=== PATIENT | male | born 1945 | race Caucasian/White ===

== ENCOUNTER 2016-06-24 12:17 | Emergency (ER) | payer BC, MEDICAID ==
[~2016-06-24] VITALS: Wt 90.5 kg
[~2016-06-24 12:17] MED LIST: NO DAILY MEDS
[2016-06-24 12:58] LABS: ADD SCAN DIFF NO
--- NOTE | 2016-06-24 12:58 | ERA ---
ER Documentation Chief Complaint Date/Time DATE: 06/24/16 TIME: 12:57 Chief Complaint "I WANT TO KILL MYSELF" HPI 70-year-old Farsi speaking male. An reinsurance claims analyst was used. The patient states for approximately 6 months he has been feeling depressed. He states that he cannot sleep at night and he thinks about ways to kill himself. The patient is tearful and asking for help. He denies any headache chest pain or shortness of breath, no fevers or chills, no drugs or alcohol currently. ROS All systems reviewed and are negative except as per history of present illness. Medications Home Meds Discontinued Reported Medications [No Daily Meds] No Conflict Check 07/16/15 Allergies Allergies: Coded Allergies: No Known Allergy (Unverified , 06/24/16) PMhx/Soc History of Surgery: Yes (LEFT FEMUR ) Anesthesia Reaction: No Hx Neurological Disorder: No Hx Respiratory Disorders: Yes (CHRONIC BRONCHITIS) Hx Cardiac Disorders: No Hx Psychiatric Problems: No Hx Miscellaneous Medical Probl: No Hx Alcohol Use: No Hx Substance Use: No Hx Tobacco Use: No (1 YR AGO) FmHx Family History: No diabetes Physical Exam Vitals Vital Signs Date Time Temp Pulse Resp B/P Pulse Ox O2 Delivery O2 Flow Rate FiO2 06/24/16 12:26 98.1 77 18 174/120 99 Physical Exam General: Well developed, well nourished, no acute distress Head: Normocephalic, atraumatic. Eyes: Pupils equally reactive, EOM intact ENT: Moist mucous membranes Neck: Supple, no lymphadenopathy Respiratory: Lungs clear bilaterally, no distress Cardiovascular: RRR, no murmurs, rubs, or gallops Abdominal: Soft, non-tender, non-distended, no peritoneal signs : Deferred MSK: No edema, no unilateral swelling, 5/5 strength Neurologic: Alert and oriented, moving all extremities, normal speech, no focal weakness, no cerebellar signs Skin: No rash Psych: Tearful, depressed mood, suicidal ideations Result Diagram: 06/24/16 1250 06/24/16 1250 Results 24 hrs Laboratory Tests Test 06/24/16 12:50 06/24/16 13:50 White Blood Count 7.810^3/ul Red Blood Count 4.6710^6/ul Hemoglobin 15.0g/dl Hematocrit 43.4% Mean Corpuscular Volume 92.9fl Mean Corpuscular Hemoglobin 32.1pg Mean Corpuscular Hemoglobin Concent 34.6g/dl Red Cell Distribution Width 13.0% Platelet Count 62720^3/UL Mean Platelet Volume 11.0fl Neutrophils % 49.3% Lymphocytes % 33.5% Monocytes % 9.4% Eosinophils % 6.9% Basophils % 0.4% Nucleated Red Blood Cells % 0.0/100WBC Neutrophils # 3.810^3/ul Lymphocytes # 2.610^3/ul Monocytes # 0.710^3/ul Eosinophils # 0.510^3/ul Basophils # 0.010^3/ul Nucleated Red Blood Cells # 0.010^3/ul Sodium Level 145mmol/L Potassium Level 4.5mmol/L Chloride Level 106mmol/L Carbon Dioxide Level 28mmol/L Anion Gap 16 Blood Urea Nitrogen 23mg/dl Creatinine 1.02mg/dl Glucose Level 106mg/dl Calcium Level 9.2mg/dl Total Bilirubin 0.2mg/dl Direct Bilirubin 0.00mg/dl Indirect Bilirubin 0.2mg/dl Aspartate Amino Transf (AST/SGOT) 18IU/L Alanine Aminotransferase (ALT/SGPT) 27IU/L Alkaline Phosphatase 95IU/L Total Protein 7.3g/dl Albumin 4.2g/dl Globulin 3.10g/dl Albumin/Globulin Ratio 1.35 Ethyl Alcohol Level < 10.0mg/dl Urine Opiates Screen Positive Urine Barbiturates Negative Urine Amphetamines Screen Negative Urine Benzodiazepines Screen Negative Urine Cocaine Screen Negative Urine Cannabinoids Positive Procedures/MDM LAB INTERPRETATION: Drug screen positive for THC and opiates MEDICAL DECISION MAKING: The patient's presentation is consistent with underlying psychiatric illness and likely exacerbation of this illness and/or psychosis such as depression or major depressive disorder I have a much lower clinical concern for delirium or acute organic pathology such as toxicologic, metabolic, ischemic, intracranial hemorrhage, infectious process. However, we must rule this out prior to relying a diagnosis of underlying psychiatric illness. The patient's workup will include medical screening examination, laboratory analysis, and diagnostic imaging such as EKG, chest x-ray or CT brain as indicated. If the patient's medical examination and laboratory analysis do not reveal acute organic pathology the patient will be medically cleared for psychiatric evaluation. ER COURSE: The patient's laboratory analysis, diagnostic imaging do not suggest an acute organic pathology. At this time I believe the patient's presentation is very consistent with underlying psychiatric illness. The patient is medically cleared for psychiatric evaluation. I kept the patient and/or family informed of laboratory and diagnostic imaging results throughout the emergency room course. CONSULTATION: Psychiatric consultation: Telemetry medicine psychiatry has been consulted on this case to evaluate the patient for possible acute psychiatric illness that would require inpatient hospitalization. DISPOSITION PLAN: Pending psychiatric evaluation by Dr. Severino Departure Diagnosis: Primary Impression: Suicidal ideation Condition: Stable ARAM VEGA MD Jun 24, 2016 12:58
[2016-06-24 12:59] LABS: BASOPHILS % 0.4 % (0.0-2.0); EOSINOPHILS # 0.5 10^3/ul (0.0-0.5); EOSINOPHILS % 6.9 % (0.0-7.0); HEMATOCRIT 43.4 % (42.0-52.0); LYMPHOCYTES # 2.6 10^3/ul (0.8-2.9); LYMPHOCYTES % 33.5 % (15.0-51.0); MEAN CORPUSCULAR HEMOGLOBIN 32.1 pg (29.0-33.0); MEAN CORPUSCULAR HGB CONC 34.6 g/dl (32.0-37.0); MEAN CORPUSCULAR VOLUME 92.9 fl (82.0-101.0); MONOCYTE # 0.7 10^3/ul (0.3-0.9); MONOCYTES % 9.4 % (0.0-11.0); NEUTROPHIL # 3.8 10^3/ul (1.6-7.5); NEUTROPHILS % 49.3 % (39.0-77.0); PLATELET COUNT 197 10^3/UL (140-415); RED BLOOD COUNT 4.67 10^6/ul (4.70-6.10); WHITE BLOOD COUNT 7.8 10^3/ul (4.8-10.8)
[2016-06-24 13:07] LABS: ALBUMIN 4.2 g/dl (3.3-4.9)
[2016-06-24 13:08] LABS: CHLORIDE 106 mmol/L (97-110); POTASSIUM 4.5 mmol/L (3.5-5.1); SODIUM 145 mmol/L (135-144)
[2016-06-24 13:10] LABS: ANION GAP 16 (8-16); ASPARTATE AMINO TRANSFERASE 18 IU/L (15-46); BILIRUBIN,INDIRECT 0.2 mg/dl (0-1.1); BILIRUBIN,TOTAL 0.2 mg/dl (0.2-1.3); CARBON DIOXIDE 28 mmol/L (21-31); CREATININE 1.02 mg/dl (0.61-1.24)
[2016-06-24 13:11] LABS: ALANINE AMINOTRANSFERASE 27 IU/L (13-69); ALBUMIN/GLOBULIN RATIO 1.35; ALKALINE PHOSPHATASE 95 IU/L (42-121); BLOOD UREA NITROGEN 23 mg/dl (7-20); CALCIUM 9.2 mg/dl (8.4-10.2); GLUCOSE 106 mg/dl (70-220); TOTAL PROTEIN 7.3 g/dl (6.1-8.1)
[2016-06-24 13:18] LABS: ETHANOL < 10.0 mg/dl
[2016-06-24 14:21] LABS: CANNABINOIDS Positive (NEGATIVE)
[2016-06-24 14:29] LABS: BARBITURATES Negative (NEGATIVE); BENZODIAZEPINES Negative (NEGATIVE); COCAINE Negative (NEGATIVE); OPIATES Positive (NEGATIVE)
--- NOTE | 2016-06-24 15:29 | PSY ---
Date/Time of Note Date/Time of Note DATE: 06/24/16 TIME: 15:22 Psychiatric Subjective Eval Consent Pt consented to telemedicine: Yes Subjective Evaluation Patient location: emergency Chief Complaint: "I WANT TO KILL MYSELF" Reason for consult: si History of present illness 70/m, translation from Pharsi was done by a service on tele, SW present. He has been depressed for yrs, isolative, not eating sleeping well, recently was lonley , wants to , feels worthless, gets flashbacks of his imprisonment for being a tenriism in [place]40 yrs ago. has been separted , lives alone. Does not have deficnite plan to kill self. Anhedonia, hopelessness are present. Insomnia is total Past psychiatric history not seen any psychiatrist before Medical history Problems Medical Problems: (1) Suicidal ideation Status: Acute Allergies: Coded Allergies: No Known Allergy (Unverified , 06/24/16) Psychiatric Objective Eval Review of Systems: Review of Systems: Not Applicable Physical Examination: Physical Examination: Not Applicable Mental Status Examination: Appearance: Groomed Eye Contact: Good Psychomotor Activity: Normal Behavior: Cooperative Speech: Clear AFFECT: Flat Mood: Depressed Though Process: Linear Thought Content: Normal Suicidal: Yes Homicidal: No On 72 hour hold: Yes Orientation: x4 Cognition: Alert Insight: Intact Judgement: Impared Attention Span: Intact Laboratory Results Laboratory Tests Test 06/24/16 12:50 06/24/16 13:50 White Blood Count 7.810^3/ul Red Blood Count 4.6710^6/ul Hemoglobin 15.0g/dl Hematocrit 43.4% Mean Corpuscular Volume 92.9fl Mean Corpuscular Hemoglobin 32.1pg Mean Corpuscular Hemoglobin Concent 34.6g/dl Red Cell Distribution Width 13.0% Platelet Count 37130^3/UL Mean Platelet Volume 11.0fl Neutrophils % 49.3% Lymphocytes % 33.5% Monocytes % 9.4% Eosinophils % 6.9% Basophils % 0.4% Nucleated Red Blood Cells % 0.0/100WBC Neutrophils # 3.810^3/ul Lymphocytes # 2.610^3/ul Monocytes # 0.710^3/ul Eosinophils # 0.510^3/ul Basophils # 0.010^3/ul Nucleated Red Blood Cells # 0.010^3/ul Sodium Level 145mmol/L Potassium Level 4.5mmol/L Chloride Level 106mmol/L Carbon Dioxide Level 28mmol/L Anion Gap 16 Blood Urea Nitrogen 23mg/dl Creatinine 1.02mg/dl Glucose Level 106mg/dl Calcium Level 9.2mg/dl Total Bilirubin 0.2mg/dl Direct Bilirubin 0.00mg/dl Indirect Bilirubin 0.2mg/dl Aspartate Amino Transf (AST/SGOT) 18IU/L Alanine Aminotransferase (ALT/SGPT) 27IU/L Alkaline Phosphatase 95IU/L Total Protein 7.3g/dl Albumin 4.2g/dl Globulin 3.10g/dl Albumin/Globulin Ratio 1.35 Ethyl Alcohol Level < 10.0mg/dl Urine Opiates Screen Positive Urine Barbiturates Negative Urine Amphetamines Screen Negative Urine Benzodiazepines Screen Negative Urine Cocaine Screen Negative Urine Cannabinoids Positive Assessment and Plan Assessment/Diagnosis [place] I: major depressive disorder , 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 TSH, B12, RPR. UTOX pos for THC, opiates ( as per ED nurse) Opiates he takes for chronic pain, femur Fx Psychotherapy yes Follow-up/Disposition admit to psych facility for DTS under [id number] Recommendation: TYRONE Abdi MD Jun 24, 2016 15:29
--- NOTE | 2016-06-25 11:23 | EN ---
Date/Time of Note Date/Time of Note DATE: 06/25/16 TIME: 11:22 ER Progress Note Patient was cleared by psych to go home. Patient will follow up with outpatient TONIA ALCALA DO Jun 25, 2016 11:23
[2016-06-25 11:31] VITALS: BP 130/73; PULSE 67; RESP 12; TEMP 98
== END 2016-06-25 11:32 | disposition home or self-care (01) ==
LOC: E/R 12:17
DX: F32.9 Major depressive disorder, single episode, unspecified (principal); R45.851 Suicidal ideations
CPT/HCPCS: 36415; 80053; 80306; 80307; 85025; Z7502; 99283

== ENCOUNTER 2016-07-13 15:41 | Emergency (ER) | payer BC, OTHER ==
[~2016-07-13] VITALS: Wt 90.0 kg
--- NOTE | 2016-07-13 17:35 | ERD ---
ER Documentation Chief Complaint Date/Time DATE: 07/13/16 TIME: 17:33 Chief Complaint depression HPI Patient is a 70-year-old male who is seen in the ER 3 weeks ago for headache after the of his mother. The patient apparently was striking his head against the wall due to headache and emotional distress. He was evaluated for psychiatric disorder and cleared. He returns to the ER stating that clinical social work aide came to his house yesterday and told him that he needed to obtain paperwork from the ER to close out his case. He is not sure what paperwork he needs. He denies recurrence of headache, denies depression, denies suicidal ideation. He has no physical or emotional complaints at this time. ROS All systems reviewed and are negative except as per history of present illness. Medications Home Meds No Active Prescriptions or Reported Meds Allergies Allergies: Coded Allergies: No Known Allergy (Unverified , 07/13/16) PMhx/Soc Past medical history: None Past surgical history: None Social history: Occasional cigarettes, no alcohol History of Surgery: Yes (LEFT FEMUR ) Anesthesia Reaction: No Hx Neurological Disorder: No Hx Respiratory Disorders: Yes (CHRONIC BRONCHITIS) Hx Cardiac Disorders: No Hx Psychiatric Problems: No Hx Miscellaneous Medical Probl: No Hx Alcohol Use: No Hx Substance Use: No Hx Tobacco Use: No (1 YR AGO) Smoking Status: Never smoker FmHx Family History: No coronary disease, No diabetes Physical Exam Vitals Vital Signs Date Time Temp Pulse Resp B/P Pulse Ox O2 Delivery O2 Flow Rate FiO2 07/13/16 15:45 98.3 74 20 160/91 99 Physical Exam Const: Alert, no acute distress Head: Atraumatic Eyes: Normal Conjunctiva, no pallor ENT: Normal External Ears, Nose and Mouth. Resp: Clear to auscultation bilaterally Cardio: Regular rate and rhythm, no murmurs Skin: No petechiae or rashes Neur: Awake and alert, cranial nerves II through XII intact, normal gait Psych: Normal Mood and Affect Procedures/MDM MDM: History was clarified with use of a Farsi five roll refiner batch mixer. Apparently the patient is bothered by the fact that he is being followed up by director of social media marketing. She denies ever having had suicidal ideation, and has followed up with an outpatient psychiatrist. He denies any symptoms at this time and appears quite well and in good spirits. Unfortunately, I do not know why director of social media marketing is following him and cannot prevent further visits. I provided the patient with a well visit documentation, and advised him to speak with director of social media marketing with a five roll refiner batch mixer if necessary to avoid miscommunication. Departure Diagnosis: Primary Impression: Visit for [facility] health check Condition: CHOLO Martinez MD Jul 13, 2016 17:35
[2016-07-13 18:04] VITALS: BP 138/75; PULSE 64; RESP 18; TEMP 97.9
== END 2016-07-13 18:35 | disposition home or self-care (01) ==
LOC: E/R 15:41
DX: Z00.00 Encounter for general adult medical examination without abnormal findings (principal); Z87.891 Personal history of nicotine dependence
CPT/HCPCS: 99282